=== PATIENT | female | born 1980 | race Caucasian/White ===

== ENCOUNTER 2022-01-26 11:17 | Emergency (ER) | payer OTHER, SELFPAY ==
[2022-01-26 11:47] VITALS: BP 144/87; PULSE 87; RESP 16; TEMP 36.7; O2SAT 97; BMI 24.1
--- NOTE | 2022-01-26 11:53 | W.ED.PSYCHS ---
HPI - Psych General: Chief Complaint: Psychiatric Symptoms Stated Complaint: MHE Time Seen by Provider: 01/26/22 11:40 History of Present Illness: Ms. Ball is a 41-year-old lady presenting to the emergency department due to uncontrolled anxiety. She reports first diagnosis approximately 5 years ago and had a good therapeutic effect with buspirone and paroxetine however stopped taking this for some number of years in favor of medical marijuana. A few weeks ago the medical marijuana seem to stop working so she returned to primary care was initiated back on buspirone however symptoms have continued to worsen. She describes panic attacks in addition to feeling like her heart is racing and her body is vibrating just sitting there. Interferes with daily functioning and ability to sleep. Intensity is moderate to severe. Previously evaluated at emergency department and placed on hydroxyzine without significant improvement and then saw primary care again and was initiated again on paroxetine. Has been on the buspirone for approximately 2 weeks and the other medications just a few days. Denies other psychiatric symptoms including denying suicidal thoughts or homicidal thoughts. No other specific changes in health, exacerbating, or alleviating factors identified. Onset (ago): week(s) Duration: getting worse History of same: Yes Review of Systems General: Reports: 10 or more systems reviewed and unremarkable except in HPI and below Physical Exam Const: COMMON NORMALS: alert GENERAL APPEARANCE: cooperative and well developed HENMT: COMMON NORMALS: normocephalic and atraumatic HEAD & SCALP: normocephalic and atraumatic Eye: COMMON NORMALS: conjunctivae normal CONJUNCTIVA: Yes conjunctivae normal SCLERA: sclerae normal Neck/C-Spine: COMMON NORMALS: supple GENERAL: Yes trachea midline Resp: COMMON NORMALS: normal respiratory effort and clear to auscultation bilaterally EFFORT & INSPECTION: Yes able to speak in complete sentences AUSCULTATION: clear to auscultation bilaterally Cardio: COMMON NORMALS: regular rate and regular rhythm RATE: regular rate RHYTHM: regular rhythm GI: COMMON NORMALS: Soft to palpation PALPATION: Yes Soft to palpation and No Tenderness to palpation present (GI) Extremity: GENERAL: Yes normal exam except as noted and No edema Neuro: COMMON NORMALS: moves all extremities SENSORIUM/ORIENTATION: Yes alert and No Orientation impaired Psych: COMMON NORMALS: mental status grossly normal, Normal thought process present, denies hallucinations, denies homicidal ideation and denies suicidal ideation THOUGHT PROCESS: Normal thought process present Course Vital Signs: Vital signs: Vital Signs Temperature 98.0 F 01/26/22 11:47 Pulse Rate 71 01/26/22 16:02 Respiratory Rate 16 01/26/22 16:02 Blood Pressure 143/80 01/26/22 16:02 Pulse Oximetry 95 01/26/22 16:02 Oxygen Delivery Me thod 01/26/22 11:47 MDM - Psych Medical Decision Making 41-year-old lady presenting with increased anxiety in context of recent medication changes. Denies suicidal or homicidal ideation. playground monitor for sinus rhythm, no STEMI. No significant hematologic or metabolic abnormalities to explain patient's symptoms, TSH is low but normal free T4 complex ingestions negative. Given clinical history and exam medication for imaging. The results of ED evaluation were discussed with the patient including possible disposition options. I offered inpatient admission which the patient declined. In discussion she reports that sleep difficulty is a major challenge, therefore I will initiate trazodone as she has tried [id number] medications. Prescriptions and/or symptomatic cares (if applicable) including appropriate and responsible use, followup plan, and return precautions. The patient verbalized understanding and felt safe for discharge. Medical Records I reviewed the patient's medical records. Lab Data I reviewed the patient's lab results. 01/26/22 13:20 01/26/22 13:20 Laboratory Results WBC 7.3 10^3/uL (4.0-10.0) 01/26/22 13:20 RBC 5.09 10^6/uL (4.1-5.3) 01/26/22 13:20 Hgb 15.1 g/dL (11.5-15.3) 01/26/22 13:20 Hct 44.7 % (37.0-47.0) 01/26/22 13:20 MCV 87.8 fl (81-99) 01/26/22 13:20 MCH 29.7 pg (28.0-34.0) 01/26/22 13:20 MCHC 33.8 g/dL (30.0-36.0) 01/26/22 13:20 RDW 13.2 % (12.1-15.1) 01/26/22 13:20 Plt Count 397 10^3/cmm (130-400) 01/26/22 13:20 MPV 9.8 fL (7.4-10.4) 01/26/22 13:20 Neut % (Auto) 61.9 % 01/26/22 13:20 Lymph % (Auto) 32.0 % 01/26/22 13:20 Ralls % (Auto) 5.4 % 01/26/22 13:20 Eos % (Auto) 0.3 % 01/26/22 13:20 Baso % (Auto) 0.1 % 01/26/22 13:20 Neut # (Auto) 4.54 10^3/uL (1.8-7.7) 01/26/22 13:20 Lymph # (Auto) 2.4 10^3/uL (0.8-4.8) 01/26/22 13:20 Ralls # (Auto) 0.4 10^3/uL (0.2-0.9) 01/26/22 13:20 Eos # (Auto) 0.0 10^3/uL (0.0-0.8) 01/26/22 13:20 Baso # (Auto) 0.0 10^3/uL (0.0-0.1) 01/26/22 13:20 Nucleated RBC % (auto) 0 % 01/26/22 13:20 Nucleated RBCs # 0.0 /100WBC 01/26/22 13:20 Sodium 136 mmol/L (136-145) 01/26/22 13:20 Potassium 4.0 mmol/L (3.5-5.1) 01/26/22 13:20 Chloride 99 mmol/L (98-107) 01/26/22 13:20 Carbon Dioxide 25 mmol/L (22-29) 01/26/22 13:20 Anion Gap 16.0 (5-19) 01/26/22 13:20 BUN 4 mg/dL (6-20) L 01/26/22 13:20 Creatinine 0.6 mg/dL (0.5-0.9) 01/26/22 13:20 GFR Calculation 110.2 mL/min (90-130) 01/26/22 13:20 Glucose 107 mg/dL (65-115) 01/26/22 13:20 Calculated Osmolality 279 mOsm/kg (285-295) L 01/26/22 13:20 Calcium 9.7 mg/dL (8.5-10.5) 01/26/22 13:20 Total Bilirubin 0.3 mg/dL (0.15-1.2) 01/26/22 13:20 AST 14 U/L (0-32) 01/26/22 13:20 ALT 9 U/L (0-33) 01/26/22 13:20 Alkaline Phosphatase 88 U/L (35-105) 01/26/22 13:20 Total Protein 7.9 g/dL (6.6-8.7) 01/26/22 13:20 Albumin 4.7 g/dL (3.5-5.2) 01/26/22 13:20 Globulin 3.2 g/dL (1.3-4.6) 01/26/22 13:20 TSH 0.25 uIU/mL (0.27-4.20) L 01/26/22 13:20 Free T4 1.42 ng/dL (0.82-1.77) 01/26/22 13:20 Salicylates < 0.3 mg/dL (3-10) L 01/26/22 13:20 Acetaminophen < 5.0 ug/mL (10-30) L 01/26/22 13:20 Ethyl Alcohol < 10 mg/dL (0-10) 01/26/22 13:20 Discharge Plan Discharge Patient Disposition: Home Clinical Impression: Anxiety, Disturbance, sleep Condition: Stable Prescriptions: New trazodone 50 mg tablet 50 mg PO .qhs PRN (Reason: insomnia) Qty: 20 0RF buspirone 15 mg tablet 15 mg PO TID Qty: 60 0RF Continued paroxetine HCl 10 mg tablet 10 mg PO QAM hydroxyzine pamoate 50 mg capsule 50 mg PO Q8H PRN (Reason: Anxiety) Discontinued buspirone 15 mg tablet 15 mg PO BID Discharge Orders: Discharge ED (Routine); Ordered 01/26/22 Ordered By: Slade Scott Patient Instructions: Trazodone (By mouth) (Desyrel, Desyrel Dividose, Oleptro, Trazamine), Insomnia (ED), Anxiety (ED) Activity Restrictions/Additional Instructions: Thank you for visiting the emergency department. You were seen and evaluated for anxiety symptoms. The exact cause of your symptoms is unclear though does not appear to need hospitalization at this time. I will prescribe trazodone for sleep disturbance. [facility] [phone] You should call and ask about walk-in hours. If you or someone you care for is experiencing a psychiatric emergency, please call the crisis hotline ([place]) 24-hours a day, 7 days a week at [phone]. Please follow-up with your primary care provider. Return to the emergency department for uncontrolled symptoms, thoughts of harming yourself or others, hallucinations, or anything else that you are concerned about a feel needs emergency department evaluation. Coding Level of Care Code ED Transmitter Operator for [employer]ilberto Exam Comprehensive
--- NOTE | 2022-01-26 12:44 | ECG_ITS ---
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 Measurements Intervals [place] Rate: 74 P: 70 TX: 167 QRS: 81 QRSD: 96 T: 56 QT: 400 QTc: 446 Interpretive Statements SINUS RHYTHM POSSIBLE LEFT ATRIAL ENLARGEMENT [-0.1mV P-WAVE IN V1/V2] No previous ECG available for comparison Electronically Signed On 01-27-2022 6:25:[address] JUSTICE by Ernesto Harrison M.D. [id number]
[2022-01-26 13:35] LABS: Basophils % 0.1 %; Eosinophils % 0.3 %; Hematocrit 44.7 % (37.0-47.0); Hemoglobin 15.1 g/dL (11.5-15.3); Lymphocytes # 2.4 10^3/uL (0.8-4.8); Mean Corpuscular HGB Conc 33.8 g/dL (30.0-36.0); Mean Corpuscular Hemoglobin 29.7 pg (28.0-34.0); Mean Corpuscular Volume 87.8 fl (81-99); Mean Platelet Volume 9.8 fL (7.4-10.4); Monocytes # 0.4 10^3/uL (0.2-0.9); Monocytes % 5.4 %; Neutrophils # 4.54 10^3/uL (1.8-7.7); Neutrophils % 61.9 %; Nucleated Red Blood Cells % 0 %; Platelet Count 397 10^3/cmm (130-400); Red Blood Count 5.09 10^6/uL (4.1-5.3); Red Cell Distribution Width 13.2 % (12.1-15.1); White Blood Count 7.3 10^3/uL (4.0-10.0)
[2022-01-26] MEDS: sodium chloride 0.9% 1,000 ML 999 ML IV (13:55)
[2022-01-26 14:06] LABS: Alanine Aminotransferase 9 U/L (0-33); Albumin Level 4.7 g/dL (3.5-5.2); Alkaline Phosphatase 88 U/L (35-105); Aspartate Amino Transferase 14 U/L (0-32); Blood Urea Nitrogen 4 mg/dL (6-20); Calcium 9.7 mg/dL (8.5-10.5); Carbon Dioxide 25 mmol/L (22-29); Chloride 99 mmol/L (98-107); Globulin 3.2 g/dL (1.3-4.6); Glomerular Filtration Rate 110.2 mL/min (90-130); Glucose 107 mg/dL (65-115); Osmolality Calculated 279 mOsm/kg (285-295); Sodium 136 mmol/L (136-145); Thyroid Stimulating Hormone 0.25 uIU/mL (0.27-4.20); Total Bilirubin 0.3 mg/dL (0.15-1.2); Total Protein 7.9 g/dL (6.6-8.7)
[2022-01-26 14:18] LABS: Acetaminophen < 5.0 ug/mL (10-30); Alcohol Level < 10 mg/dL (0-10); Salicylate < 0.3 mg/dL (3-10)
[2022-01-26 15:27] LABS: Free T4 Free Thyroxine 1.42 ng/dL (0.82-1.77)
[2022-01-26 16:02] VITALS: BP 143/80; PULSE 71; RESP 16; O2SAT 95
== END 2022-01-26 16:03 | disposition home or self-care (01) ==
PROVIDERS: Emergency Provider Emergency Medicine
DX: F41.9 Anxiety disorder, unspecified (principal); G47.9 Sleep disorder, unspecified
CPT/HCPCS: 36415; 80053; 80307; 84439; 84443; 85025; 93005; 99284; J7030

== ENCOUNTER 2023-05-14 10:48 | Outpatient (CLI) | payer OTHER, SELFPAY ==
--- NOTE | 2023-05-14 10:56 | MM_ITS ---
WS: [id number] BILATERAL SCREENING DIGITAL TOMOSYNTHESIS MAMMOGRAM WITH CAD HISTORY: SCREENING COMPARISON: None available. Bilateral CC and MLO views with tomosynthesis and synthetic mammography submitted. Computer aided det ection analyzed. Breast composition: The breasts are heterogeneously dense, which may obscure small masses. No suspici ous masses, microcalcifications or architectural distortion. IMPRESSION: MM/[place] [id number] BI-RADS: 1-Negative FOLLOW UP: 1 Year Follow-up
== END 2023-05-14 10:49 | disposition home or self-care (01) ==
LOC: RAD 10:48
PROVIDERS: Visit Provider Nurse Practitioner Family
DX: Z12.31 Encounter for screening mammogram for malignant neoplasm of breast (principal)
CPT/HCPCS: 77063; 77067